=== PATIENT | female | born 1960 | race Caucasian/White ===

== ENCOUNTER 2020-11-14 11:01 | Outpatient (CLI) | payer MEDICAID, SELFPAY ==
--- NOTE | 2020-11-14 11:09 | XR_ITS ---
WS: [id number] Exam: XR sacrum coccyx min 2V [id number] Date/Time of Exam: 11/14/2020 11:09 AM Reason For Exam: COCCYX PAIN No sign of sacrococcygeal fracture or dislocation. SI joints are open and demonstrate mild degenerati ve change. No sign of bone destruction. No abnormal soft tissue findings. XR/XR sacrum coccyx min 2V [id number] IMPRESSION: 1. No fracture or bone destruction. 2. Mild degenerative change of the SI joints. Degenerative change at the L5-S1 disc space.
== END 2020-11-14 11:02 | disposition home or self-care (01) ==
PROVIDERS: PCP Family Medicine; Visit Provider Registered Nurse
DX: M53.3 Sacrococcygeal disorders, not elsewhere classified (principal)
CPT/HCPCS: 72220

== ENCOUNTER 2020-12-26 13:33 | Outpatient (CLI) | payer MEDICAID, SELFPAY ==
--- NOTE | 2020-12-26 13:37 | XR_ITS ---
WS: [id number] DEXA (DUAL ENERGY X-RAY ABSORPTIOMETRY) Bone mineral density was performed using a Intacct machine. HISTORY: POST MENOPAUSAL COMPARISON: None available. Lumbar spine BMD (L1-L4): 0.982 g/cm2 T score: -1.7 Z score: -1.7 Total hip BMD: Left: 0.966 g/cm2. T score: -0.3 Z score: -0.3 Right: 0.960 g/cm2. T score: -0.4 Z score: -0.3 10 year probability of a major osteoporotic fracture is 26%. XR/XR DEXA axial skeleton* [id number] IMPRESSION: OSTEOPENIA based upon the WHO classification for females. Patient is at signifi cant increased risk for fracture.
== END 2020-12-26 13:34 | disposition home or self-care (01) ==
PROVIDERS: PCP Family Medicine; Visit Provider Registered Nurse
DX: Z13.820 Encounter for screening for osteoporosis (principal); Z78.0 Asymptomatic menopausal state; M85.80 Other specified disorders of bone density and structure, unspecified site
CPT/HCPCS: 77080

== ENCOUNTER 2021-08-07 06:07 | Emergency (ER) | payer MEDICAID, SELFPAY ==
[2021-08-07 06:11] VITALS: BP 178/106; PULSE 62; RESP 17; TEMP 36.6; O2SAT 98; BMI 34.0
--- NOTE | 2021-08-07 06:12 | XRR_ITS ---
PROCEDURE INFORMATION: Exam: XR Right Hip Exam date and time: 08/07/2021 6:18 AM Age: 60 years old Clinical indication: Right hip; Patient HX: RT hip pain x 3 week no known injry TECHNIQUE: Imaging protocol: XR Right hip. Views: 1 view hip with pelvis when performed. COMPARISON: CR XR sacrum coccyx min 2V [id number] 11/14/2020 11:15 AM FINDINGS: Bones/joints: No acute osseous abnormality. No acute fracture. No dislocation. Soft tissues: No significant soft tissue abnormalities. XR/XR hip RT 2-3V wo/w pel* [id number] IMPRESSION: No acute abnormality demonstrated.
--- NOTE | 2021-08-07 06:27 | CTR_ITS ---
PROCEDURE INFORMATION: Exam: CT Lumbar Spine Without Contrast Exam date and time: 08/07/2021 6:55 AM Age: 60 years old Clinical indication: Low back pain TECHNIQUE: Imaging protocol: Computed tomography images of the lumbar spine without contrast. Radiation optimization: All CT scans at this facility use at least one of these dose optimization techniques: automated exposure control; mA and/or kV adjustment per patient size (includes targeted exams where dose is matched to clinical indication); or iterative reconstruction. COMPARISON: CR (PELVIS, ) 08/07/2021 6:18 AM RADIATION DOSE METRICS: Total DLP (mGy-cm): 2440.29 FINDINGS: Vertebrae: No acute fracture. No spondylolisthesis or spondylolysis. Normal lumbar alignment and vertebral body height. Multilevel spondylosis with degenerative endplate spurring. Lower lumbar spine bilateral facet hypertrophy. Discs/Spinal canal/Neural foramina: Multilevel disc space narrowing and diffuse disc bulging. Severe disc space narrowing L5-S1. Ysiw-st-pftwvjyy lower lumbar spinal stenosis. Moderate bilateral L5 foraminal stenosis. Vasculature: Atherosclerotic vascular calcification. No abdominal aortic aneurysm. Soft tissues: No significant soft tissue abnormalities. CT/CT lumbar spine wo con* [id number] IMPRESSION: 1. No evidence of acute fracture or subluxation. 2. Multilevel spondylosis and lower lumbar degenerative changes as described.
--- NOTE | 2021-08-07 06:27 | ED_ITS ---
HPI - Extremity Problem General: Chief complaint: Extremity Injury, Lower Stated complaint: right hip pain Time Seen by Provider: 08/07/21 06:09 Source: patient Mode of arrival: ambulatory Limitations: no limitations History of Present Illness: 60-year-old female comes in complaining of right hip pain this been intermittent for the last several weeks. She states she is lost 70 pounds and thought it would improve. At various times it will be weak due to pain but at other times she is able to ambulate with that she has been using a cane. No trauma that she can recall no other difficulties. No previous back or right hip injuries or surgeries. MD Complaint: extremity pain Onset (ago): week(s) Pain Consistency: intermittent Location: right and lower extremity (Hip radiating into the thigh) Quality: aching Radiation: distal Relieving factors: nothing Exacerbating factors: nothing Associated symptoms: Reports arthralgias (Right hip); Deny chest pain, fever(s), myalgias, rash or short of breath Review of Systems Const: Denies: fever(s) or chills Card: Denies: chest pain Resp: Denies: dyspnea, productive cough or non-productive cough GI: Denies: abdominal pain, nausea, vomiting, diarrhea, constipation or fecal incontinence : Reports: other (No urinary retention); Denies: flank pain, difficulty voiding, dysuria, urinary frequency or urinary urgency Musc: Reports: joint pain Skin/Breast: Denies: rash PFSH ED PFSH: Medical History (Updated 08/07/21 @ 08:32 by Buck May DO) Hypertension Obesity Pacemaker Social History (Updated 08/07/21 @ 08:33 by Buck May DO) Smoking and tobacco status: never smoked Alcohol intake: unknown Physical Exam Const: COMMON NORMALS: no acute distress GENERAL APPEARANCE: cooperative and comfortable ORIENTATION/CONSCIOUSNESS: Yes awake, Yes oriented to person, Yes oriented to place and Yes oriented to time HENMT: COMMON NORMALS: normocephalic, atraumatic and hearing grossly normal bilaterally HEAD & SCALP: normocephalic and atraumatic Neck/C-Spine: COMMON NORMALS: no JVD Resp: COMMON NORMALS: normal respiratory effort, No retractions, No use of accessory muscles and clear to auscultation bilaterally AUSCULTATION: clear to auscultation bilaterally Cardio: COMMON NORMALS: no JVD, regular rate, regular rhythm and No murmurs present (Cardio) RATE: regular rate RHYTHM: regular rhythm GI: COMMON NORMALS: Soft to palpation and No hepatosplenomegaly present AUSCULTATION: Yes normoactive bowel sounds PALPATION: Yes Soft to palpation, No Tenderness to palpation present (GI), No Guarding due to palpation present (G I) and Yes No hepatosplenomegaly present Extremity: COMMON NORMALS: normal to inspection, capillary refill normal, no clubbing, cyanosis or edema, no calf tenderness and no pedal edema Neuro: SENSORIUM/ORIENTATION: Yes oriented to person, Yes oriented to place and Yes oriented to time OTHER: Dorsum plantar flexion strength 5 of 5 negative straight leg raising test on the right. Sensation normal neurovascularly intact in the right lower extremity. Skin: COMMON NORMALS: no rashes or lesions noted GENERAL SKIN EXAM: no rashes or lesions noted Course Vital Signs: Vital signs: Vital Signs Temperature 97.9 F 08/07/21 06:11 Pulse Rate 60 08/07/21 08:09 Respiratory Rate 16 08/07/21 08:09 Blood Pressure 150/104 08/07/21 08:09 Pulse Oximetry 99 08/07/21 08:09 MDM - Extremity (Nontraumatic) Medical Decision Making CBC unremarkable sed rate only slightly elevated. X-ray of the hip shows osteoarthritic changes appropriate 1 degree for age. Lumbar spine does not show any acute fractures there are some degenerative changes no significant stenosis. Reviewed findings with the patient discharged home we offered her pain medicine while she was here and she declined any significant pain medication she also declined any the time of discharge gave her diclofenac to use as needed tizanidine and a prednisone taper recurrent recommend she follow-up with her primary caregiver. She may need nerve conduction studies for her lower extr emities to evaluate further she has a pacemaker. There are some protocols for MRI in patients with pacemakers that could be pursued if needed that should be arranged through her primary caregiver Medical Records I reviewed the patient's medical records. Lab Data I reviewed the patient's lab results. : 08/07/21 06:50 Radiology Impressions Hip/Pelvis X-Ray 08/07/21 06:12 IMPRESSION: No acute abnormality demonstrated. Lumbar Spine CT 08/07/21 06:27 IMPRESSION: 1. No evidence of acute fracture or subluxation. 2. Multilevel spondylosis and lower lumbar degenerative changes as described. Laboratory Results WBC 7.0 10^3/uL (4.0-10.0) 08/07/21 06:50 RBC 4.73 10^6/uL (4.1-5.3) 08/07/21 06:50 Hgb 14.5 g/dL (11.5-15.3) 08/07/21 06:50 Hct 43.3 % (37.0-47.0) 08/07/21 06:50 MCV 91.5 fl (81-99) 08/07/21 06:50 MCH 30.7 pg (28.0-34.0) 08/07/21 06:50 MCHC 33.5 g/dL (30.0-36.0) 08/07/21 06:50 RDW 12.3 % (12.1-15.1) 08/07/21 06:50 Plt Count 189 10^3/cmm (130-400) 08/07/21 06:50 MPV 12.2 fL (7.4-10.4) H 08/07/21 06:50 Neut % (Auto) 38.4 % 08/07/21 06:50 Lymph % (Auto) 47.4 % 08/07/21 06:50 [place] % (Auto) 11.8 % 08/07/21 06:50 Eos % (Auto) 1.9 % 08/07/21 06:50 Baso % (Auto) 0.4 % 08/07/21 06:50 Neut # (Auto) 2.69 10^3/uL (1.8-7.7) 08/07/21 06:50 Lymph # (Auto) 3.3 10^3/uL (0.8-4.8) 08/07/21 06:50 [place] # (Auto) 0.8 10^3/uL (0.2-0.9) 08/07/21 06:50 Eos # (Auto) 0.1 10^3/uL (0.0-0.8) 08/07/21 06:50 Baso # (Auto) 0.0 10^3/uL (0.0-0.1) 08/07/21 06:50 Nucleated RBC % (auto) 0 % 08/07/21 06:50 Nucleated RBCs # 0.0 /100WBC 08/07/21 06:50 ESR 28 mm/hr (0-15) H 08/07/21 06:50 C-Reactive Protein 3.0 mg/L (0.0-4.9) 08/07/21 06:50 Discharge Plan Discharge Patient Disposition: Home Clinical Impression: Radicular pain of right lower extremity Condition: Stable Prescriptions: New prednisone 20 mg tablet 20 mg PO TID Qty: 15 0RF Rx Instructions: 1 p.o. 3 times daily x3 days, 1 p.o. twice daily x2 days, 1 p.o. daily x2 days diclofenac sodium 75 mg tablet,delayed release (DR/EC) 75 mg PO Q12H PRN (Reason: pain) Qty: 20 0RF tizanidine 4 mg capsule 4 mg PO Q6H PRN (Reason: muscle spasticity) Qty: 20 0RF Rx Instructions: do not exceed 3 doses per 24 hrs No Action metoprolol tartrate 25 mg tablet 25 mg PO BID Qty: 180 3RF Discharge Orders: Discharge ED (Routine); Ordered 08/07/21 Ordered By: Buck May Referrals: Angela Ewing DO [Primary Care Provider] - Discharge Diet: Usual diet Discharge Activity: Resume usual activity Patient Instructions: Opioid Safety Activity Restrictions/Additional Instructions: Prednisone taper. Use of diclofenac and tizanidine as needed. Follow-up with your primary care doctor for further evaluation including possible advanced testing such as nerve conduction. Coding Level of Care Code ED Gate Shear Operator for Porfirio Tapia
[2021-08-07] MEDS: dexamethasone 10 mg/mL INJ IVP (06:41)
[2021-08-07] MEDS: ketorolac 30 mg/mL INJ IVP (06:42)
[2021-08-07] MEDS: orphenadrine 30 mg/mL Inj 2 mL 60 MG IVP (06:43)
[2021-08-07 07:14] LABS: Basophils % 0.4 %; Eosinophils # 0.1 10^3/uL (0.0-0.8); Eosinophils % 1.9 %; Hematocrit 43.3 % (37.0-47.0); Hemoglobin 14.5 g/dL (11.5-15.3); Lymphocytes # 3.3 10^3/uL (0.8-4.8); Lymphocytes % 47.4 %; Mean Corpuscular HGB Conc 33.5 g/dL (30.0-36.0); Mean Corpuscular Hemoglobin 30.7 pg (28.0-34.0); Mean Corpuscular Volume 91.5 fl (81-99); Mean Platelet Volume 12.2 fL (7.4-10.4); Monocytes # 0.8 10^3/uL (0.2-0.9); Monocytes % 11.8 %; Neutrophils # 2.69 10^3/uL (1.8-7.7); Neutrophils % 38.4 %; Nucleated Red Blood Cells % 0 %; Platelet Count 189 10^3/cmm (130-400); Red Blood Count 4.73 10^6/uL (4.1-5.3); Red Cell Distribution Width 12.3 % (12.1-15.1)
[2021-08-07 07:25] LABS: Erythrocyte Sedimentation Rate 28 mm/hr (0-15)
[2021-08-07 08:09] VITALS: BP 150/104; PULSE 60; RESP 16; O2SAT 99
[2021-08-07 08:33] VITALS: BP 150/104; PULSE 60; O2SAT 97
== END 2021-08-07 08:39 | disposition home or self-care (01) ==
PROVIDERS: Emergency Provider Family Medicine; PCP Family Medicine
DX: M54.16 Radiculopathy, lumbar region (principal)
CPT/HCPCS: 72131; 73502; 85025; 85651; 86140; 96374; 96375; 99284; J1100; J1885; J2360

== ENCOUNTER → 2023-02-18 17:48 | Outpatient (BNVA) | payer MEDICAID, SELFPAY | PROVIDERS: PCP Family Medicine; Visit Provider Nurse Practitioner | DX: N39.0 Urinary tract infection, site not specified (principal) | CPT/HCPCS: 81000 ==

== ENCOUNTER → 2024-07-11 08:16 | Outpatient (BNVA) | payer MEDICAID, SELFPAY | PROVIDERS: PCP Family Medicine; Visit Provider Emergency Medicine | DX: B34.9 Viral infection, unspecified (principal); U07.1 COVID-19 | CPT/HCPCS: 87400; 87426 ==

== ENCOUNTER 2024-07-18 22:41 | Emergency (ER) | payer MEDICAID, SELFPAY ==
[2024-07-18 22:42] VITALS: BP 209/93; PULSE 65; RESP 18; TEMP 36.9; O2SAT 98
[2024-07-18 22:57] LABS: Glucose Point of Care 359 mg/dL (70-110)
[2024-07-18 22:58] LABS: Basophils % 0.4 %; Eosinophils % 0.1 %; Hematocrit 41.1 % (36-47); Lymphocytes % 21.4 %; Mean Corpuscular HGB Conc 33.3 g/dL (30-55); Mean Corpuscular Hemoglobin 29.8 pg (27-33); Mean Corpuscular Volume 89.3 fl (85-98); Mean Platelet Volume 11.8 fL (7.4-10.4); Monocytes # 0.5 10^3/uL (0.2-0.9); Monocytes % 5.2 %; Neutrophils # 6.71 10^3/uL (1.8-7.7); Neutrophils % 71.9 %; Nucleated Red Blood Cells % 0 %; Platelet Count 192 10^3/cmm (157-399); Red Cell Distribution Width 12.5 % (12.1-15.1); White Blood Count 9.32 10^3/uL (3.29-11.43)
--- NOTE | 2024-07-18 23:05 | W.ED.GENADLT ---
HPI - General Adult General: Chief complaint: General Medical Stated complaint: high bs Time Seen by Provider: 07/18/24 22:45 History of Present Illness: Patient is a well-appearing 63-year-old female seen for hyperglycemia. She was placed on a round of steroids for viral upper respiratory infection and has had hyperglycemia resulting. She states that at 1 point today she felt somewhat lightheaded but otherwise has felt well. She denies chest pain, shortness of breath, polydipsia, polyuria, abdominal pain, nausea, vomiting, and has no other acute complaints. She takes Ozempic and a fixed dose of Lantus but does not use a sliding scale for insulin. Related Data Home Medications ?Medication ?Instructions ?Recorded ?Confirmed alprazolam 0.25 mg tablet (Xanax) 0.25 mg PO DAILY 02/18/23 montelukast 10 mg tablet 10 mg PO DAILY 02/18/23 (Singulair) pantoprazole 20 mg tablet,delayed 20 mg PO DAILY 02/18/23 release (Protonix) Previous Rx's ?Medication ?Instructions ?Recorded metoprolol tartrate 25 mg tablet 25 mg PO BID #180 tabs 05/25/19 fluconazole 150 mg tablet 150 mg PO Q3D 2 doses #2 tabs 02/18/23 beneonsqobigugb-xnrmnhfxqehmoet-MF 5 ml PO Q6H PRN cold symptoms #118 07/11/24 2 mg-30 mg-10 mg/5 mL oral syrup mL (Bromfed DM) Allergies Allergy/AdvReac Type Severity Reaction Status Date / Time morphine Allergy ALGY-Redness Verified 07/18/24 22:48 of Skin [facility] ED [facility]: Medical History (Updated 07/19/24 @ 00:19 by Kip Celis MD) Pacemaker Obesity Hypertension Social History Smoking and tobacco/nicotine status: never used tobacco/nicotine Alcohol intake: unknown Physical Exam Const: COMMON NORMALS: no acute distress, patient oriented x3 and alert HENMT: COMMON NORMALS: normocephalic and atraumatic HEAD & SCALP: normocephalic and atraumatic Eye: COMMON NORMALS: Equal, round and reactive pupils present, EOMs intact bilaterally and no scleral icterus PUPIL: Yes Equal, round and reactive pupils present Resp: COMMON NORMALS: normal respiratory effort and No retractions Cardio: COMMON NORMALS: regular rate, regular rhythm and No murmurs present (Cardio) RATE: regular rate RHYTHM: regular rhythm GI: COMMON NORMALS: Normal to inspection, nondistended, normoactive bowel sounds present, Soft to palpation and non-tender PALPATION: Yes Soft to palpation Neuro: COMMON NORMALS: patient oriented x3 SENSORIUM/ORIENTATION: Yes alert Skin: COMMON NORMALS: no rashes or lesions noted GENERAL SKIN EXAM: no rashes or lesions noted Course Vital Signs: Vital signs: Vital Signs Temperature 98.4 F 07/18/24 22:42 Pulse Rate 62 07/19/24 00:39 Respiratory Rate 16 07/19/24 00:39 Blood Pressure 179/89 07/19/24 00:39 Pulse Oximetry 98 07/19/24 00:39 Oxygen Delivery Me thod Room Air 07/18/24 22:42 MDM - General Adult Medical Decision Making Labs show no evidence of DKA or other metabolic derangement. Glucose level responded well to 10 units IV insulin. We discussed that when she takes steroids she will likely require more insulin in the future. She shows understanding and will be discharged in stable condition. Lab Data 07/18/24 22:25 07/18/24 22:25 Laboratory Results WBC 9.32 10^3/uL (3.29-11.43) 07/18/24: RBC 4.60 10^6/uL (3.85-5.65) 07/18/24 22: Hgb 13.70 g/dL (11.27-16.99) 07/18/24: Hct 41.1 % (36-47) 07/18/24 22: MCV 89.3 fl (85-98) 07/18/24 22: MCH 29.8 pg (27-33) 07/18/24: MCHC 33.3 g/dL (30-55) 07/18/24: RDW 12.5 % (12.1-15.1) 07/18/24 22: Plt Count 192 10^3/cmm (157-399) 07/18/24 22: MPV 11.8 fL (7.4-10.4) H 07/18/24: Neut % (Auto) 71.9 % 07/18/24 22: Lymph % (Auto) 21.4 % 07/18/24 22: [place] % (Auto) 5.2 % 07/18/24 22: Eos % (Auto) 0.1 % 07/18/24 22: Baso % (Auto) 0.4 % 07/18/24: Neut # (Auto) 6.71 10^3/uL (1.8-7.7) 07/18/24: Lymph # (Auto) 2.0 10^3/uL (0.8-4.8) 07/18/24: [place] # (Auto) 0.5 10^3/uL (0.2-0.9) 07/18/24: Eos # (Auto) 0.0 10^3/uL (0.0-0.8) 07/18/24: Baso # (Auto) 0.0 10^3/uL (0.0-0.1) 07/18/24: Nucleated RBC % (auto) 0 % 07/18/24: Nucleated RBCs # 0.0 /100WBC 07/18/24 22: Sodium 132 mmol/L (136-145) L 07/18/24: Potassium 5.3 mmol/L (3.5-5.1) H 07/18/24 22: Chloride 93 mmol/L (98-107) L 07/18/24: Carbon Dioxide 29 mmol/L (22-29) 07/18/24: Anion Gap 15.3 (5-19) 07/18/24: BUN 17 mg/dL (8-23) 07/18/24: Creatinine 0.7 mg/dL (0.5-0.9) 07/18/24: GFR Calculation 84.8 mL/min (90-130) L 07/18/24: Glucose 370 mg/dL (65-115) H 07/18/24 22: POC Glucose 183 mg/dL (70-110) H 07/19/24 00:02 Calculated Osmolality 291 mOsm/kg (285-295) 07/18/24: Calcium 9.5 mg/dL (8.5-10.5) 07/18/24 22:25 Total Bilirubin 0.2 mg/dL (0.15-1.2) 07/18/24 22:25 AST 98 U/L (0-32) H 07/18/24 22:25 ALT 77 U/L (0-33) H 07/18/24 22:25 Alkaline Phosphatase 115 U/L (35-105) H 07/18/24 22:25 Total Protein 7.6 g/dL (6.6-8.7) 07/18/24 22: Albumin 4.1 g/dL (3.5-5.2) 07/18/24 22: Globulin 3.5 g/dL (1.3-4.6) 07/18/24 22:25 All radiology interpretation(s) finalized by discharge EKG Data EKG 1: Interpretation: EKG: Time?2307?atrially paced rhythm, rate of 60, no ST segment elevation or depression, right bundle branch block pattern, QTc = 381 Discharge Plan Discharge Patient Disposition: Home Clinical Impression: Steroid-induced hyperglycemia Condition: Stable Prescriptions: No Action montelukast [Singulair] 10 mg tablet 10 mg PO DAILY pantoprazole [Protonix] 20 mg tablet,delayed release (DR/EC) 20 mg PO DAILY alprazolam [Xanax] 0.25 mg tablet 0.25 mg PO DAILY fluconazole 150 mg tablet 150 mg PO Q3D Qty: 2 0RF Rx Instructions: may repeat second dose 72 hrs after first dose if symptoms persist [id number] [Bromfed DM] 2-30-10 mg/5 mL syrup 5 ml PO Q6H PRN (Reason: cold symptoms) Qty: 118 0RF metoprolol tartrate 25 mg tablet 25 mg PO BID Qty: 180 3RF Discharge Orders: Discharge ED (Routine); Ordered 07/19/24 Ordered By: Kip Celis Referrals: Angela Ewing DO [Primary Care Provider] - Discharge Diet: Diabetic Discharge Activity: Increase activity as tolerated Patient Instructions: Managing Diabetes During Sick Days (ED) Activity Restrictions/Additional Instructions: When you have diabetes, sickness and certain medications can cause your blood sugar levels to spike high. Steroids typically make glucose levels rise despite all other factors and you should be prepared to take higher doses of insulin when taking steroids to counteract this. Fortunately you are no longer taking steroids and should not require any change to your insulin regimen going forward. We gave you an extra dose and your sugar dropped from almost 400-180. There is no evidence of the high blood sugar causing other problems in your blood work today. It is safe to resume your normal medications. Print Language: French Coding Level of Care Code ED Dietetics Director for Porfirio Tapia
--- NOTE | 2024-07-18 23:08 | ECG_ITS ---
[facility]24[facility]18 Pat Name: Candie Wills Department: Room: Gender: Female Engineer Conductor: : 1960 Requested By: Kip Byrd Order Number: [id number] Bryant MD: Keshawn Orozco M.D. Measurements Intervals [place] Rate: 60 P: 152 NE: 163 QRS: 15 QRSD: 92 T: 19 QT: 379 QTc: 382 Interpretive Statements ELECTRONIC ATRIAL PACEMAKER LOW QRS VOLTAGE IN PRECORDIAL LEADS [QRS DEFLECTION < 1.0 mV IN CHEST LEADS] POSSIBLE RIGHT VENTRICULAR CONDUCTION DELAY [RSR (QR) IN V1/V2] Compared to ECG 08/27/2017 20:12:59 Low QRS voltage now present T-wave abnormality no longer present Electronically Signed On 07-24-2024 10:16:28 CDT by Keshawn Orozco M.D. [email or web address]
[2024-07-18] MEDS: sodium chloride 0.9% 1,000 ML 999 ML IV (23:26)
[2024-07-18 23:27] LABS: Alanine Aminotransferase 77 U/L (0-33); Albumin Level 4.1 g/dL (3.5-5.2); Alkaline Phosphatase 115 U/L (35-105); Blood Urea Nitrogen 17 mg/dL (8-23); Calcium 9.5 mg/dL (8.5-10.5); Carbon Dioxide 29 mmol/L (22-29); Chloride 93 mmol/L (98-107); Globulin 3.5 g/dL (1.3-4.6); Glomerular Filtration Rate 84.8 mL/min (90-130); Glucose 370 mg/dL (65-115); Osmolality Calculated 291 mOsm/kg (285-295); Sodium 132 mmol/L (136-145); Total Bilirubin 0.2 mg/dL (0.15-1.2); Total Protein 7.6 g/dL (6.6-8.7)
[2024-07-18] MEDS: insulin regular-human 100 units/1 mL 10 UNIT IVP (23:27)
[2024-07-18 23:32] LABS: Anion Gap 15.3 (5-19); Aspartate Amino Transferase 98 U/L (0-32); Potassium 5.3 mmol/L (3.5-5.1)
[2024-07-19 00:31] LABS: Glucose Point of Care 183 mg/dL (70-110)
[2024-07-19 00:39] VITALS: BP 179/89; PULSE 62; RESP 16; O2SAT 98
== END 2024-07-19 00:42 | disposition home or self-care (01) ==
PROVIDERS: Emergency Provider Student in an Organized Health Care Education/Training Program; PCP Family Medicine
DX: R73.9 Hyperglycemia, unspecified (principal); Z95.0 Presence of cardiac pacemaker; I10 Essential (primary) hypertension
CPT/HCPCS: 36416; 80053; 82962; 85025; 93005; 96374; 99284; J1815; J7030

== ENCOUNTER → 2024-07-20 07:17 | Outpatient (BNVA) | payer MEDICAID, SELFPAY | PROVIDERS: PCP Family Medicine; Visit Provider Internal Medicine | DX: E11.9 Type 2 diabetes mellitus without complications (principal); E78.5 Hyperlipidemia, unspecified | CPT/HCPCS: 99204 ==

== ENCOUNTER → 2024-08-08 08:38 | Outpatient (BNVA) | payer MEDICAID, SELFPAY | PROVIDERS: PCP Family Medicine; Visit Provider Internal Medicine | DX: E11.9 Type 2 diabetes mellitus without complications (principal); E78.5 Hyperlipidemia, unspecified | CPT/HCPCS: 99214 ==

== ENCOUNTER → 2024-10-20 08:06 | Outpatient (BNVA) | payer MEDICAID, SELFPAY | PROVIDERS: PCP Family Medicine; Visit Provider Internal Medicine | DX: E11.9 Type 2 diabetes mellitus without complications (principal); E78.5 Hyperlipidemia, unspecified | CPT/HCPCS: 36415; 80053; 80061; 82044; 83036; 99214 ==

== ENCOUNTER → 2025-03-12 14:18 | Outpatient (BNVA) | payer MEDICAID, SELFPAY | PROVIDERS: PCP Family Medicine; Visit Provider Internal Medicine Endocrinology, Diabetes & Metabolism | DX: E11.9 Type 2 diabetes mellitus without complications (principal); E78.5 Hyperlipidemia, unspecified; M62.81 Muscle weakness (generalized) | CPT/HCPCS: 99214 ==